=== PATIENT | female | born 1995 | race American Indian/Alaskan Native ===

== ENCOUNTER 2019-06-17 05:08 | Inpatient (IN) | payer MEDICAID ==
[2019-06-17] MEDS ORDERED: TERBUTALINE 1 MG/1 ML INJ IVP PRN (06:24)
[2019-06-17] MEDS ORDERED: ONDANSETRON 4 MG/2 ML INJ IV PRN (06:24)
[2019-06-17] MEDS ORDERED: PROMETHAZINE 25 MG TAB PO PRN (06:24)
[2019-06-17] MEDS ORDERED: DINOPROSTONE 10 MG VAG SUPP VG ONE (06:24)
[2019-06-17] MEDS ORDERED: MINERAL OIL 30 ML ORAL LIQD PO PRN (06:24)
[2019-06-17] MEDS ORDERED: NALOXONE 0.4 MG/1 ML INJ IV PRN (06:24)
[2019-06-17] MEDS ORDERED: fentaNYL 100 MCG/2 ML INJ IV PRN (06:24)
[2019-06-17] MEDS ORDERED: AMPICILLIN/NS 2 GM/100 ML 2 GM/100 ML BAG IV ONE (06:24)
[2019-06-17] MEDS ORDERED: ePHEDrine SULFATE 50 MG/1 ML INJ IV PRN (06:24)
[2019-06-17] MEDS ORDERED: TERBUTALINE 1 MG/1 ML INJ SUB-Q PRN (06:24)
[2019-06-17] MEDS ORDERED: MAGNESIUM SULFATE 4 GM/100 ML BAG IV ONE (06:24)
[2019-06-17] MEDS ORDERED: LIDOCAINE (2%) 20 MG/1 ML VIAL 20 ML MDV INFILTRATI ONE (06:24)
[2019-06-17 06:57] LABS: Hematocrit 36.1 % (30.3-42.9); Hemoglobin 12.1 gm/dl (10.1-14.3); Mean Corpuscular HGB Conc 34 % (30-34); Mean Corpuscular Volume 85 fl (79-97); Platelet Count 122 K/mm3 (140-440); Red Blood Count 4.28 M/mm3 (3.65-5.03); Red Cell Distribution Width 14.2 % (13.2-15.2)
[2019-06-17] MEDS ORDERED: LACTATED RINGERS 1,000 ML IV SCH (07:00)
[2019-06-17] MEDS ORDERED: OXYTOCIN DRIP 30 UNITS/500 ML BAG IV SCH ×2 (07:00)
[2019-06-17] MEDS ORDERED: OXYTOCIN 20 UNIT/1000ML DRIP 20 UNITS/1,000 ML BAG IV SCH ×2 (07:00)
[2019-06-17] MEDS ORDERED: CALCIUM GLUCONATE 1000 MG/10 ML INJ IV ONE (07:00)
[2019-06-17] MEDS: LACTATED RINGERS 1,000 ML IV SCH ×2 (07:03→17:46)
[2019-06-17 07:15] LABS: BUN/Creatinine Ratio 10; Blood Urea Nitrogen 5 mg/dL (7-17); Hemolysis Index 6
[2019-06-17] MEDS: MAGNESIUM SULFATE 40GM/1000ML 40 GM/1,000 ML BAG IV SCH (07:46)
[2019-06-17] MEDS ORDERED: AMPICILLIN/NS 1 GM/50 ML 1 GM/50 ML BAG IV SCH (10:30)
[2019-06-17 12:34] LABS: Bilirubin,Urine NEG (Negative); Blood,Urine NEG (Negative); Color,Urine Straw (Yellow); Hyaline Casts,Urine 1 /LPF; Protein,Urine <15 mg/dL mg/dL (Negative); Urobilinogen,Urine < 2.0 mg/dL (<2.0); WBC,Urine < 1.0 /HPF (0.0-6.0)
[2019-06-17 12:38] LABS: Creatinine,Urine 24.5 mg/dL (0.1-20.0)
--- NOTE | 2019-06-17 23:07 | History and Physical Report ---
History of Present Illness Date of examination: 06/17/19 Date of admission: 06/17/19 06:48 Chief complaint: contractions and high blood pressure History of present illness: Pt is a 23 year old who presents for induction of labor secondary to hypertension and contractions. she has a history of chronic hypertension treated with aldomet and has been in good control throughout the . Past History Past Medical History: hypertension Past Surgical History: no surgical history Social history: single - Obstetrical History : 1 Medications and Allergies Allergies Allergy/AdvReac Type Severity Reaction Status Date / Time nitrofurantoin AdvReac Hives Verified 06/18/19 01:27 [From Macrobid] Home Medications Medication Instructions Recorded Confirmed Last Taken Type Docusate Sodium [Colace] 100 mg PO BID PRN #60 capsule 06/19/19 Unknown Rx Ferrous Sulfate [Feosol 325 MG tab] 325 mg PO BID #60 tablet 06/19/19 Unknown Rx Ibuprofen [Motrin] 800 mg PO Q8HR PRN #40 tablet 06/19/19 Unknown Rx Labetalol [Labetalol 200mg TAB] 200 mg PO BID #60 tablet 06/19/19 Unknown Rx Active Meds: Active Medications Butorphanol Tartrate (Stadol) 2 mg IV Q2H PRN PRN Reason: Pain , Severe (7-10) Ephedrine Sulfate (Ephedrine Sulfate) 10 mg IV Q2M PRN PRN Reason: Hypotension Fentanyl (Sublimaze) 100 mcg IV Q2H PRN PRN Reason: Labor Pain Lactated Ringer's (Lactated Ringers) 1,000 mls @ 125 mls/hr IV DIRECT ELIZABETH Last Admin: 06/17/19 17:46 Dose: 100 mls/hr Documented by: Oxytocin/Sodium Chloride (Pitocin/Ns 20 Unit/1000ml Drip) 20 units in 1,000 mls @ 125 mls/hr IV DIRECT ELIZABETH Oxytocin/Sodium Chloride (Pitocin/Ns 30 Unit/500ml) 30 units in 500 mls @ 1 mls/hr IV TITR ELIZABETH; Protocol Oxytocin/Sodium Chloride (Pitocin/Ns 30 Unit/500ml) 30 units in 500 mls @ 2 mls/hr IV TITR ELIZABETH; Protocol Oxytocin/Sodium Chloride (Pitocin/Ns 20 Unit/1000ml Drip) 20 units in 1,000 mls @ 0 mls/hr IV TITR ELIZABETH Magnesium Sulfate (Magnesium Sulfate 40gm/1000ml) 40 gm in 1,000 mls @ 25 mls/hr IV DIRECT ELIZABETH Last Infusion: 06/17/19 22:50 Dose: 1 gm/hr, 25 mls/hr Documented by: Ampicillin Sodium (Ampicillin/Ns 1 Gm/50 Ml) 1 gm in 50 mls @ 100 mls/hr IV Q4HR ELIZABETH; Protocol Labetalol HCl (Normodyne) 20 mg IV PRN PRN PRN Reason: Hypertension Mineral Oil (Mineral Oil) 30 ml PO QHS PRN PRN Reason: Constipation Naloxone HCl (Narcan 0.4 Mg/1 Ml) 0.1 mg IV Q2MIN PRN PRN Reason: Res Rate </= 8 or 02 SAT < 92% Ondansetron HCl (Zofran) 4 mg IV Q8H PRN PRN Reason: Nausea And Vomiting Promethazine HCl (Phenergan) 25 mg PO Q6H PRN PRN Reason: Nausea And Vomiting Terbutaline Sulfate (Brethine) 0.25 mg SUB-Q ONCE PRN PRN Reason: Hyperstimulation/Hypertonicity Terbutaline Sulfate (Brethine) 0.25 mg IVP ONCE PRN PRN Reason: Hyperstimulation/Hypertonicity Review of Systems All systems: negative Cardiovascular: lightheadedness Genitourinary: contractions - Vital Signs Vital signs: Vital Signs Pulse BP 89 163/99 06/17/19 05:18 06/17/19 05:18 Temp Pulse Resp BP Pulse Ox 97.7 F 99 H 16 138/84 99 06/17/19 16:43 06/17/19 23:03 06/17/19 22:00 06/17/19 22:08 06/17/19 23:03 - Physical Exam Breasts: Cardiovascular: Regular rate, Normal S1, Normal S2 Lungs: Positive: Clear to auscultation, Normal air movement Abdomen: Positive: normal appearance, soft, normal bowel sounds. Negative: distention, tenderness Vulva: both: normal Vagina: Positive: normal moisture. Negative: discharge Cervix: Negative: lesion, discharge Uterus: Positive: normal size, normal contour Adnexa: both: normal Anus/Rectum: Positive: normal perianal skin, heme negative. Negative: rectal mass, hemorrhoids Extremities: Deep Tendon Reflex Grade: Normal +2 - Obstetrical FHR: auscultation normal Cervical Dilatation: 0.5 Results Result Diagrams: 06/20/19 00:20 06/17/19 06:15 Abnormal lab results 06/17/19 06/17/19 06/17/19 Range/Units 06:15 06:15 Unknown Plt Count 122 L (140-440) K/mm3 Carbon Dioxide 20 L (22-30) mmol/L BUN 5 L (7-17) mg/dL Creatinine 0.5 L (0.7-1.2) mg/dL Urine Creatinine 24.5 H (0.1-20.0) mg/dL Urine Total Protein < 4 L (5-11.8) mg/dL All other labs normal. Assessment and Plan IUP at 39 weeks here with contractions and early labor. Admit for induction of labor. anticipate .
[2019-06-18] MEDS: LACTATED RINGERS 1,000 ML IV SCH ×2 (05:02→15:39)
--- NOTE | 2019-06-18 11:06 | Progress Note ---
Assessment and Plan Day 2 of the induction process for chronic hypertension. Will continue with plan. Anticipate . Subjective - Subjective Date of service: 06/18/19 Interval history: Pt received cervidil with no change. Will now begin low dose pitocin. Patient reports: movement normal, contractions Objective - Vital Signs Vital Signs: Vital Signs - 12hr 06/17/19 06/17/19 06/17/19 23:03 23:08 23:13 Temperature Pulse Rate 99 H 88 90 Respiratory Rate Blood Pressure Blood Pressure [Left] O2 Sat by Pulse 99 99 98 Oximetry 06/17/19 06/17/19 06/17/19 23:18 23:23 23:28 Temperature Pulse Rate 86 89 84 Respiratory Rate Blood Pressure Blood Pressure [Left] O2 Sat by Pulse 98 98 98 Oximetry 06/17/19 06/17/19 06/17/19 23:33 23:38 23:43 Temperature Pulse Rate 85 86 96 H Respiratory Rate Blood Pressure Blood Pressure [Left] O2 Sat by Pulse 98 97 98 Oximetry 06/17/19 06/17/19 06/17/19 23:48 23:53 23:58 Temperature Pulse Rate 98 H 94 H 102 H Respiratory Rate Blood Pressure Blood Pressure [Left] O2 Sat by Pulse 98 98 97 Oximetry 06/18/19 06/18/19 06/18/19 00:03 00:08 00:13 Temperature Pulse Rate 95 H 89 90 Respiratory Rate Blood Pressure Blood Pressure [Left] O2 Sat by Pulse 97 99 97 Oximetry 06/18/19 06/18/19 06/18/19 00:18 00:23 00:28 Temperature Pulse Rate 84 94 H 84 Respiratory Rate Blood Pressure Blood Pressure [Left] O2 Sat by Pulse 98 98 99 Oximetry 06/18/19 06/18/19 06/18/19 00:33 00:38 00:43 Temperature Pulse Rate 90 84 89 Respiratory Rate Blood Pressure Blood Pressure [Left] O2 Sat by Pulse 99 97 99 Oximetry 06/18/19 06/18/19 06/18/19 00:48 00:53 00:58 Temperature Pulse Rate 90 92 H 89 Respiratory Rate Blood Pressure Blood Pressure [Left] O2 Sat by Pulse 98 99 98 Oximetry 06/18/19 06/18/19 06/18/19 01:03 01:08 01:13 Temperature Pulse Rate 88 89 95 H Respiratory Rate Blood Pressure Blood Pressure [Left] O2 Sat by Pulse 99 99 98 Oximetry 06/18/19 06/18/19 06/18/19 01:18 01:23 01:25 Temperature Pulse Rate 95 H 82 Respiratory 16 Rate Blood Pressure Blood Pressure [Left] O2 Sat by Pulse 99 99 Oximetry 06/18/19 06/18/19 06/18/19 01:28 01:33 01:34 Temperature Pulse Rate 86 88 88 Respiratory Rate Blood Pressure 131/76 Blood Pressure [Left] O2 Sat by Pulse 98 97 Oximetry 06/18/19 06/18/19 06/18/19 01:38 01:41 01:43 Temperature Pulse Rate 90 93 H 88 Respiratory Rate Blood Pressure Blood Pressure [Left] O2 Sat by Pulse 96 94 96 Oximetry 06/18/19 06/18/19 06/18/19 01:48 01:53 01:58 Temperature Pulse Rate 107 H 90 94 H Respiratory Rate Blood Pressure Blood Pressure [Left] O2 Sat by Pulse 95 97 96 Oximetry 06/18/19 06/18/19 06/18/19 02:03 02:08 02:13 Temperature Pulse Rate 89 92 H 86 Respiratory Rate Blood Pressure Blood Pressure [Left] O2 Sat by Pulse 96 96 97 Oximetry 06/18/19 06/18/19 06/18/19 02:18 02:23 02:25 Temperature 98 F Pulse Rate 86 82 92 H Respiratory 16 Rate Blood Pressure Blood Pressure 128/76 [Left] O2 Sat by Pulse 98 99 100 Oximetry 06/18/19 06/18/19 06/18/19 02:28 02:33 02:38 Temperature Pulse Rate 81 87 88 Respiratory Rate Blood Pressure Blood Pressure [Left] O2 Sat by Pulse 98 98 98 Oximetry 06/18/19 06/18/19 06/18/19 02:43 02:48 02:53 Temperature Pulse Rate 92 H 84 82 Respiratory Rate Blood Pressure Blood Pressure [Left] O2 Sat by Pulse 98 99 99 Oximetry 06/18/19 06/18/19 06/18/19 02:58 03:03 03:08 Temperature Pulse Rate 79 78 80 Respiratory Rate Blood Pressure Blood Pressure [Left] O2 Sat by Pulse 99 99 99 Oximetry 06/18/19 06/18/19 06/18/19 03:13 03:18 03:23 Temperature Pulse Rate 84 83 79 Respiratory Rate Blood Pressure Blood Pressure [Left] O2 Sat by Pulse 99 99 99 Oximetry 06/18/19 06/18/19 06/18/19 03:28 03:33 03:38 Temperature Pulse Rate 84 78 77 Respiratory Rate Blood Pressure Blood Pressure [Left] O2 Sat by Pulse 99 99 99 Oximetry 06/18/19 06/18/19 06/18/19 03:43 03:48 03:53 Temperature Pulse Rate 78 81 88 Respiratory Rate Blood Pressure Blood Pressure [Left] O2 Sat by Pulse 99 99 98 Oximetry 06/18/19 06/18/19 06/18/19 03:56 03:58 04:03 Temperature Pulse Rate 85 82 95 H Respiratory Rate Blood Pressure 141/90 Blood Pressure [Left] O2 Sat by Pulse 99 99 Oximetry 06/18/19 06/18/19 06/18/19 04:08 04:13 04:18 Temperature Pulse Rate 83 81 80 Respiratory Rate Blood Pressure Blood Pressure [Left] O2 Sat by Pulse 98 98 98 Oximetry 06/18/19 06/18/19 06/18/19 04:23 04:28 04:33 Temperature Pulse Rate 86 78 78 Respiratory Rate Blood Pressure Blood Pressure [Left] O2 Sat by Pulse 98 99 98 Oximetry 06/18/19 06/18/19 06/18/19 04:38 04:43 04:45 Temperature Pulse Rate 77 82 80 Respiratory 16 Rate Blood Pressure 136/89 Blood Pressure 136/89 [Left] O2 Sat by Pulse 99 99 98 Oximetry 06/18/19 06/18/19 06/18/19 04:48 04:53 04:58 Temperature Pulse Rate 90 93 H 92 H Respiratory Rate Blood Pressure Blood Pressure [Left] O2 Sat by Pulse 99 99 99 Oximetry 06/18/19 06/18/19 06/18/19 05:03 05:08 05:13 Temperature Pulse Rate 93 H 81 89 Respiratory Rate Blood Pressure Blood Pressure [Left] O2 Sat by Pulse 99 99 98 Oximetry 06/18/19 06/18/19 06/18/19 05:18 05:23 05:27 Temperature Pulse Rate 77 76 93 H Respiratory Rate Blood Pressure 142/87 Blood Pressure [Left] O2 Sat by Pulse 99 97 Oximetry 06/18/19 06/18/19 06/18/19 05:28 05:33 05:38 Temperature Pulse Rate 79 96 H 79 Respiratory Rate Blood Pressure Blood Pressure [Left] O2 Sat by Pulse 97 98 98 Oximetry 06/18/19 06/18/19 06/18/19 05:43 05:48 05:53 Temperature Pulse Rate 75 83 93 H Respiratory Rate Blood Pressure Blood Pressure [Left] O2 Sat by Pulse 97 98 99 Oximetry 06/18/19 06/18/19 06/18/19 05:58 06:03 06:08 Temperature Pulse Rate 94 H 89 88 Respiratory Rate Blood Pressure Blood Pressure [Left] O2 Sat by Pulse 98 99 98 Oximetry 06/18/19 06/18/19 06/18/19 06:12 06:13 06:18 Temperature Pulse Rate 86 79 82 Respiratory Rate Blood Pressure 130/86 Blood Pressure [Left] O2 Sat by Pulse 98 98 Oximetry 06/18/19 06/18/19 06/18/19 06:23 06:28 06:33 Temperature Pulse Rate 102 H 81 82 Respiratory Rate Blood Pressure Blood Pressure [Left] O2 Sat by Pulse 98 98 98 Oximetry 06/18/19 06/18/19 06/18/19 06:38 06:43 06:48 Temperature Pulse Rate 76 82 82 Respiratory Rate Blood Pressure Blood Pressure [Left] O2 Sat by Pulse 98 97 98 Oximetry 06/18/19 06/18/19 06/18/19 06:53 06:57 06:58 Temperature Pulse Rate 96 H 101 H 92 H Respiratory Rate Blood Pressure 154/81 Blood Pressure [Left] O2 Sat by Pulse 97 98 Oximetry 06/18/19 06/18/19 06/18/19 07:03 07:08 07:13 Temperature Pulse Rate 91 H 103 H 75 Respiratory Rate Blood Pressure Blood Pressure [Left] O2 Sat by Pulse 99 97 98 Oximetry 06/18/19 06/18/19 06/18/19 07:18 07:23 07:28 Temperature 98.5 F Pulse Rate 85 80 95 H Respiratory 20 Rate Blood Pressure Blood Pressure [Left] O2 Sat by Pulse 98 98 98 Oximetry 06/18/19 06/18/19 06/18/19 07:33 07:38 07:41 Temperature Pulse Rate 92 H 96 H 86 Respiratory Rate Blood Pressure 136/97 Blood Pressure [Left] O2 Sat by Pulse 98 98 Oximetry 06/18/19 06/18/19 06/18/19 07:43 07:48 07:53 Temperature Pulse Rate 91 H 102 H 96 H Respiratory Rate Blood Pressure Blood Pressure [Left] O2 Sat by Pulse 98 99 99 Oximetry 06/18/19 06/18/19 06/18/19 07:58 08:03 08:08 Temperature Pulse Rate 96 H 94 H 94 H Respiratory Rate Blood Pressure Blood Pressure [Left] O2 Sat by Pulse 98 98 98 Oximetry 06/18/19 06/18/19 06/18/19 08:09 08:13 08:18 Temperature Pulse Rate 95 H 94 H Respiratory Rate Blood Pressure Blood Pressure [Left] O2 Sat by Pulse 94 98 99 Oximetry 06/18/19 06/18/19 06/18/19 08:23 08:26 08:28 Temperature Pulse Rate 94 H 95 H 111 H Respiratory Rate Blood Pressure 131/83 Blood Pressure [Left] O2 Sat by Pulse 100 98 Oximetry 06/18/19 06/18/19 06/18/19 08:33 08:38 08:43 Temperature Pulse Rate 90 100 H 107 H Respiratory Rate Blood Pressure Blood Pressure [Left] O2 Sat by Pulse 99 98 98 Oximetry 06/18/19 06/18/19 06/18/19 08:44 08:48 08:53 Temperature Pulse Rate 97 H 87 84 Respiratory Rate Blood Pressure Blood Pressure [Left] O2 Sat by Pulse 0 L 98 97 Oximetry 06/18/19 06/18/19 06/18/19 08:58 09:03 09:08 Temperature Pulse Rate 82 82 83 Respiratory Rate Blood Pressure Blood Pressure [Left] O2 Sat by Pulse 97 99 96 Oximetry 06/18/19 06/18/19 06/18/19 09:11 09:13 09:18 Temperature Pulse Rate 83 82 88 Respiratory Rate Blood Pressure 132/81 Blood Pressure [Left] O2 Sat by Pulse 96 96 Oximetry 06/18/19 06/18/19 06/18/19 09:23 09:27 09:28 Temperature Pulse Rate 91 H 89 Respiratory 20 Rate Blood Pressure Blood Pressure [Left] O2 Sat by Pulse 97 97 Oximetry 06/18/19 06/18/19 06/18/19 09:33 09:38 09:43 Temperature Pulse Rate 95 H 89 92 H Respiratory Rate Blood Pressure Blood Pressure [Left] O2 Sat by Pulse 97 98 98 Oximetry 06/18/19 06/18/19 06/18/19 09:48 09:53 09:56 Temperature Pulse Rate 102 H 93 H 96 H Respiratory Rate Blood Pressure 121/71 Blood Pressure [Left] O2 Sat by Pulse 100 99 Oximetry 06/18/19 06/18/19 06/18/19 09:58 10:03 10:08 Temperature Pulse Rate 92 H 87 97 H Respiratory Rate Blood Pressure Blood Pressure [Left] O2 Sat by Pulse 99 99 98 Oximetry 06/18/19 06/18/19 06/18/19 10:13 10:18 10:23 Temperature Pulse Rate 103 H 103 H 89 Respiratory Rate Blood Pressure Blood Pressure [Left] O2 Sat by Pulse 98 98 97 Oximetry 06/18/19 06/18/19 06/18/19 10:28 10:33 10:38 Temperature Pulse Rate 89 94 H 89 Respiratory Rate Blood Pressure Blood Pressure [Left] O2 Sat by Pulse 99 98 98 Oximetry 06/18/19 06/18/19 06/18/19 10:43 10:48 10:53 Temperature Pulse Rate 99 H 92 H 92 H Respiratory Rate Blood Pressure Blood Pressure [Left] O2 Sat by Pulse 98 98 98 Oximetry - Exam Cardiovascular: Regular rate, Normal S1, Normal S2 Lungs: Clear to auscultation, Normal air movement Abdomen: Present: normal appearance, soft. Absent: distention, tenderness Uterus: Present: normal FHR: auscultation normal - Labs Labs: Abnormal Labs 06/17/19 06/17/19 06/17/19 06:15 06:15 Unknown Plt Count 122 L Carbon Dioxide 20 L BUN 5 L Creatinine 0.5 L Magnesium Urine Creatinine 24.5 H Urine Total Protein < 4 L 06/18/19 05:52 Plt Count Carbon Dioxide BUN Creatinine Magnesium 3.50 H Urine Creatinine Urine Total Protein Laboratory Results - last 24 hr 06/17/19 06/17/19 06/17/19 06:15 06:15 Unknown Uric Acid 4.7 Magnesium Urine Color Straw Urine Turbidity Clear Urine pH 7.0 Ur Specific [place] 1.005 Urine Protein <15 mg/dl Urine Glucose (UA) Neg Urine Ketones Neg Urine Blood Neg Urine Nitrite Neg Urine Bilirubin Neg Urine Urobilinogen < 2.0 Ur Leukocyte Esterase Neg Urine WBC (Auto) < 1.0 Urine RBC (Auto) 1.0 U Epithel Cells (Auto) < 1.0 Hyaline Casts 1 Urine Creatinine Urine Total Protein RPR Nonreactive 06/17/19 06/18/19 Unknown 05:52 Uric Acid Magnesium 3.50 H Urine Color Urine Turbidity Urine pH Ur Specific [place] Urine Protein Urine Glucose (UA) Urine Ketones Urine Blood Urine Nitrite Urine Bilirubin Urine Urobilinogen Ur Leukocyte Esterase Urine WBC (Auto) Urine RBC (Auto) U Epithel Cells (Auto) Hyaline Casts Urine Creatinine 24.5 H Urine Total Protein < 4 L RPR
--- NOTE | 2019-06-18 19:08 | Event Note ---
Date: 06/18/19 Pt feeling mild contractions. AROM for blood tinged fluid. Pitocin at 20 miu. Continue management. Anticipate .
[2019-06-18] MEDS: fentaNYL 100 MCG/2 ML INJ IV PRN ×2 (20:53→21:00)
[2019-06-18] MEDS: MAGNESIUM SULFATE 40GM/1000ML 40 GM/1,000 ML BAG IV SCH (22:16)
[2019-06-18] MEDS: BUTORPHANOL 2 MG/1 ML INJ IV PRN ×2 (23:30→23:34)
[2019-06-19] MEDS ORDERED: ePHEDrine SULFATE 50 MG/1 ML INJ IV PRN (02:12)
[2019-06-19] MEDS ORDERED: NALOXONE 2 MG/2 ML INJ IV PRN (02:12)
--- NOTE | 2019-06-19 02:12 | Anesthesia Consultation ---
Anesthesia Consult and Med Hx Date of service: 06/19/19 - Airway Anesthetic Teeth Evaluation: Good ROM Head & Neck: Adequate Mental/Hyoid Distance: Adequate Mallampati Class: Class II Intubation Access Assessment: Probably Good - Pulmonary Exam CTA: Yes - Cardiac Exam Cardiac Exam: RRR - Pre-Operative Health Status ASA Pre-Surgery Classification: ASA2 Proposed Anesthetic Plan: Epidural - Pulmonary Hx Asthma: No - Cardiovascular System Hx Hypertension: Yes (Gestational hypertension) - Central Nervous System Hx Seizures: No Hx Psychiatric Problems: No - Endocrine Hx Renal Disease: No Hx Hypothyroidism: No Hx Hyperthyroidism: No - Hematic Hx Anemia: No Hx Sickle Cell Disease: No - Other Systems Hx Alcohol Use: No
[2019-06-19] MEDS: fentaNYL 100 MCG/2 ML INJ IV PRN (02:24)
[2019-06-19] MEDS ORDERED: fentaNYL-BUPIV 2 MCG/ML-0.125% 200 MCG/100 ML BAG EPIDURAL SCH (03:00)
[2019-06-19 03:06] LABS: Hematocrit 36.3 % (30.3-42.9); Mean Corpuscular HGB Conc 33 % (30-34); Mean Corpuscular Volume 84 fl (79-97); Platelet Count 123 K/mm3 (140-440); Red Cell Distribution Width 14.3 % (13.2-15.2)
[2019-06-19] MEDS: LACTATED RINGERS 1,000 ML IV SCH (08:09)
[2019-06-19] MEDS ORDERED: LIDOCAINE MPF (2%) 20 MG/1 ML VIAL 5 ML ONE (08:46)
[2019-06-19] MEDS ORDERED: OXYTOCIN 10 UNIT/1 ML INJ ONE (11:45)
[2019-06-19] MEDS ORDERED: LIDOCAINE (2%) 20 MG/1 ML VIAL 20 ML MDV INFILTRATI ONE (11:47)
--- NOTE | 2019-06-19 12:06 | Procedure Note ---
OB Delivery Note - Delivery Date of Delivery: 06/19/19 Surgeon: NAYAN MARCOS Estimated blood loss: 300cc - Vaginal Delivery presentation: vertex Delivery position: OA Intrapartum events: none Delivery induction: cervidil Delivery augmentation: rupture of membranes, pitocin Delivery monitor: external FHT, external uterine Route of delivery: Delivery placenta: spontaneous Delivery cord: 3 umbilical vessels Episiotomy: none Delivery laceration: vaginal side wall Delivery repair: vicryl Anesthesia: epidural Delivery comments: Viable female delivered over intact perineum with 3vc at 11:32 am. Infant had spontaneous cry and was placed on maternal abdomen. Apgars 9,9. Placenta delivered spontaneously and intact with 3vc. Sidewall laceration repaired with 2.0 vicryl. Excellent hemostasis. Pt tolerated procedure well, - Infant A at 1 minute: 8 at 5 minutes: 9 Infant Gender: Female (6 pounds 3 ounces)
[2019-06-19] MEDS ORDERED: ACETAMINOPHEN 325 MG TAB PO PRN (15:55)
[2019-06-19] MEDS ORDERED: PROMETHAZINE 25 MG RECT SUPP PR PRN (15:55)
[2019-06-19] MEDS ORDERED: ONDANSETRON 4 MG/2 ML INJ IV PRN (15:55)
[2019-06-19] MEDS ORDERED: WITCH HAZEL/ GLYCERIN PAD TP PRN (15:55)
[2019-06-19] MEDS ORDERED: LANOLIN/ZINC/DIMETHICONE (LANSINOH) 7 GM TP PRN (15:55)
[2019-06-19] MEDS ORDERED: PROMETHAZINE 25 MG TAB PO PRN (15:55)
[2019-06-19] MEDS ORDERED: diphenhydrAMINE 25 MG CAP PO PRN (15:55)
[2019-06-19] MEDS ORDERED: HYDROcodone/ACETAMINOPHEN 5-325 MG TAB PO PRN (15:55)
[2019-06-19] MEDS ORDERED: MAGNESIUM HYDROXIDE (MOM) ORAL LIQD UDC PO PRN (15:55)
[2019-06-19] MEDS: IBUPROFEN 600 MG TAB PO SCH ×2 (16:23→22:42)
[2019-06-19] MEDS: FERROUS SULFATE 325 MG TAB PO SCH (22:38)
[2019-06-19] MEDS: DOCUSATE SODIUM 100 MG CAP PO SCH (22:38)
[2019-06-20 00:45] LABS: Hematocrit 27.5 % (30.3-42.9); Hemoglobin 9.2 gm/dl (10.1-14.3)
[2019-06-20] MEDS: DOCUSATE SODIUM 100 MG CAP PO SCH ×2 (10:15→22:51)
[2019-06-20] MEDS: FERROUS SULFATE 325 MG TAB PO SCH ×2 (10:17→22:51)
[2019-06-21] MEDS: IBUPROFEN 600 MG TAB PO SCH ×4 (00:03→13:03)
--- NOTE | 2019-06-21 07:34 | Progress Note ---
Assessment and Plan ppd 2 s/p . Doing well. Plan for Discharge on today. Subjective - Subjective Date of service: 06/21/19 Interval history: PPD 2. s/p . Pt has had normal range blod pressure since delivery. Pt was to be discharged on yesterday but stayed for infant to receive phototherapy Patient reports: appetite normal, voiding normally, pain well controlled : doing well Objective - Vital Signs Latest vital signs: Vital Signs Temp Pulse Resp BP BP 06/21/19 00:03 18 06/20/19 22:49 98 H 131/80 06/20/19 22:47 131/80 06/20/19 15:55 97.9 F 108 H 20 130/86 06/20/19 10:16 20 06/20/19 08:30 97.9 F 75 20 117/75 Intake and Output 06/20/19 06/21/19 06/21/19 22:59 06:59 14:59 Intake Total 120 360 Balance 120 360 Intake: Oral 120 360 Other: Total, Intake Amount 120 120 # Voids Void 1 1 - Exam Breasts: Present: deferred Cardiovascular: Present: Regular rate, Normal S1, Normal S2 Lungs: Present: Clear to auscultation, Normal air movement Abdomen: Present: normal appearance, soft, normal bowel sounds Uterus: Present: normal Extremities: Present: normal
--- NOTE | 2019-06-21 07:37 | Discharge Summary ---
Providers - Providers Date of Admission: 06/17/19 06:48 Date of discharge: 06/21/19 Attending physician: NAYAN MARCOS Primary care physician: NAYAN MARCOS Hospitalization Reason for admission: induction of labor, other (chronic hypertension) Delivery: Laceration: vaginal side wall complications: none Discharge diagnosis: IUP at term delivered [place] baby: female Hospital course: Improved and unremarkable Condition at discharge: Good Disposition: DC-30 STILL A PATIENT Plan - Discharge Medications Prescriptions: Docusate Sodium [Colace] 100 mg PO BID PRN #60 capsule PRN Reason: Constipation Ferrous Sulfate [Feosol 325 MG tab] 325 mg PO BID #60 tablet Labetalol [Labetalol 200mg TAB] 200 mg PO BID #60 tablet Ibuprofen [Motrin] 800 mg PO Q8HR PRN #40 tablet PRN Reason: Pain, Moderate (4-6) - Provider Discharge Summary Activity: routine, no sex for 6 weeks, no heavy lifting 4 weeks, no strenuous exercise Diet: routine Instructions: routine Additional instructions: [] Smoking cessation referral if applicable(refer to patient education folder for contact #) [] Refer to [facility]'s [facility] Booklet Call your doctor immediately for: * Fever > 100.5 * Heavy vaginal bleeding ( >1 pad per hour) * Severe persistent headache * Shortness of breath * Reddened, hot, painful area to leg or breast * Drainage or odor from incision. * Keep incision clean and dry at all times and follow doctor's instructions regarding bathing/showering - Follow up plan Follow up: NAYAN MARCOS MD [Primary Care Provider] - 7 Days
[2019-06-21] MEDS: FERROUS SULFATE 325 MG TAB PO SCH (13:01)
[2019-06-21] MEDS: DOCUSATE SODIUM 100 MG CAP PO SCH (13:05)
[2019-06-21 18:26] VITALS: BP 141/72
== END 2019-06-21 16:25 | disposition home or self-care (01) | DRG 774 ==
LOC: TRG 05:08 → LD 06:48 → OB 06-19 14:41
PROVIDERS: ADMIT Obstetrics & Gynecology; ATTEND Obstetrics & Gynecology
PROC: 10E0XZZ Delivery of Products of Conception, External Approach (ICD-10-PCS; principal; 2019-06-19)
PROC: 0UQGXZZ Repair Vagina, External Approach (ICD-10-PCS; 2019-06-19)
PROC: 3E0P7VZ Introduction of Hormone into Female Reproductive, Via Natural or Artificial Opening (ICD-10-PCS; 2019-06-19)
PROC: 3E0R3BZ Introduction of Anesthetic Agent into Spinal Canal, Percutaneous Approach (ICD-10-PCS; 2019-06-19)
PROC: 00HU33Z Insertion of Infusion Device into Spinal Canal, Percutaneous Approach (ICD-10-PCS; 2019-06-19)
PROC: 10907ZC Drainage of Amniotic Fluid, Therapeutic from Products of Conception, Via Natural or Artificial Opening (ICD-10-PCS; 2019-06-19)
DX: O10.92 Unspecified pre-existing hypertension complicating childbirth (principal); O71.4 Obstetric high vaginal laceration alone; Z37.0 Single live birth; Z3A.38 38 weeks gestation of pregnancy
CPT/HCPCS: 36415; 59200; 80048; 81001; 82570; 83735; 84156; 84550; 85014; 85018; 85027; 86592; 86850; 86900; 86901; G0378; A6250; J0595; J2405; J2590; J3010; J3475; J7120